=== PATIENT | male | born 1945 | race Caucasian/White ===

== ENCOUNTER 2021-05-11 20:15 | Inpatient (IN) ==
[2021-05-11 21:10] LABS: Basophils % 0.4 % (0.0-0.8); Eosinophils # 0.3 10*3/uL (0.0-0.87); Hematocrit 40.3 VOL% (42.0-52.0); Hemoglobin 13.6 GM/DL (14.0-18.0); Immature Granulocytes % 0.9 %; Immature Granulocytes Absolute 0.08 #; Lymphocytes # 1.8 10*3/uL (1.4-4.0); Lymphocytes % 18.9 % (21.2-54.2); Mean Corpuscular HGB Conc 33.7 GM/DL (32-36); Mean Corpuscular Volume 84.1 FL (87-102); Mean Platelet Volume 9.6 FL (9.6-12.0); Monocytes % 8.4 % (1.7-12.7); Neutrophils % 68.4 % (38.7-73.9); Platelet Count 247 T/CUMM (130-400); Red Blood Count 4.79 MC/CUMM (3.8-5.5); Red Cell Distribution Width 14.1 % (9.3-17.3); White Blood Count 9.3 T/CUMM (4-12)
[2021-05-11 21:37] LABS: Albumin 3.6 G/DL (3.4-5.0); Bilirubin,Total 0.5 MG/DL (0.20-1.00); Calcium 8.9 MG/DL (8.5-10.1); Osmolality,Calculated 277.1 MOS/KG (273-304); Potassium 3.4 MMOL/L (3.5-5.1); Total Protein 6.6 G/DL (6.4-8.2)
[2021-05-12] MEDS ORDERED: ENOXAPARIN 30 MG/0.3 ML SYRINGE SUBCUT STA (01:22)
[2021-05-12] MEDS ORDERED: ENOXAPARIN 120 MG/0.8 ML SYRINGE SUBCUT ONE (01:27)
[2021-05-12] MEDS ORDERED: hydrALAZINE 20 MG/1 ML VIAL IV PRN (01:57)
[2021-05-12] MEDS ORDERED: DEXTROSE 50% 25 GM/50 ML VIAL IV PRN (01:57)
[2021-05-12] MEDS ORDERED: ONDANSETRON 4 MG/2 ML VIAL IV PRN (01:57)
[2021-05-12] MEDS ORDERED: GLUCAGON 1 MG VIAL IM PRN (01:57)
[2021-05-12] MEDS ORDERED: ACETAMINOPHEN 325 MG TABLET PO PRN (01:57)
[2021-05-12 06:57] LABS: Basophils % 0.4 % (0.0-0.8); Eosinophils # 0.3 10*3/uL (0.0-0.87); Eosinophils % 2.7 % (0.00-10.9); Hematocrit 40.3 VOL% (42.0-52.0); Hemoglobin 13.6 GM/DL (14.0-18.0); Immature Granulocytes % 0.7 %; Immature Granulocytes Absolute 0.08 #; Lymphocytes # 1.6 10*3/uL (1.4-4.0); Lymphocytes % 15.2 % (21.2-54.2); Mean Corpuscular HGB Conc 33.7 GM/DL (32-36); Mean Corpuscular Volume 84.3 FL (87-102); Mean Platelet Volume 9.7 FL (9.6-12.0); Monocytes % 8.6 % (1.7-12.7); Neutrophils % 72.4 % (38.7-73.9); Platelet Count 246 T/CUMM (130-400); Red Blood Count 4.78 MC/CUMM (3.8-5.5); Red Cell Distribution Width 13.9 % (9.3-17.3); White Blood Count 10.7 T/CUMM (4-12)
[2021-05-12 07:14] LABS: Calcium 9.2 MG/DL (8.5-10.1); Osmolality,Calculated 274.8 MOS/KG (273-304); Potassium 3.2 MMOL/L (3.5-5.1)
[2021-05-12] MEDS ORDERED: POTASSIUM CHLORIDE 20 MEQ TABLET PO ONE ×2 (07:36→08:18)
[2021-05-12] MEDS: INSULIN LISPRO 100 UNIT/ML SUBCUT SCH ×4 (08:35→20:32)
[2021-05-12] MEDS ORDERED: MAGNESIUM SULF RIDER 2 GM/50 ML PREMIX IV ONE (08:41)
[2021-05-12] MEDS ORDERED: HEPARIN DRIP 25,000 UNITS/500 ML PREMIX IV SCH (09:00)
[2021-05-12 09:12] LABS: % Iron Saturation 13.7 % (18-50)
[2021-05-12 09:13] LABS: Folate > 24.00 NG/ML (5.38-24.0); Vitamin B12 594 PG/ML (211-911)
[2021-05-12] MEDS ORDERED: ASPIRIN 325 MG TABLET PO ONE (09:24)
[2021-05-12] MEDS ORDERED: diphenhydrAMINE CAP 50 MG CAPSULE PO ONE (09:24)
[2021-05-12] MEDS ORDERED: DIAZEPAM 5 MG TABLET PO ONE (09:24)
[2021-05-12] MEDS: PANTOPRAZOLE 40 MG TABLET PO SCH (09:29)
[2021-05-12] MEDS ORDERED: HEPARIN/NACL 0.9% 2 UNITS/ML 2,000 UNIT/1,000 ML BAG IV ONE (09:38)
[2021-05-12] MEDS ORDERED: LIDOCAINE 1% 20 ML VIAL ONE (09:38)
[2021-05-12] MEDS ORDERED: fentaNYL 100 MCG/2 ML VIAL ONE (10:11)
[2021-05-12] MEDS ORDERED: MIDAZOLAM 2 MG/2 ML VIAL ONE ×2 (10:11→10:31)
[2021-05-12] MEDS ORDERED: HEPARIN 5,000 UNIT/1 ML VIAL ONE ×2 (10:22→10:37)
[2021-05-12] MEDS ORDERED: HEPARIN/NACL 0.9% 2 UNITS/ML 1,000 UNIT/500 ML BAG IV ONE (10:59)
[2021-05-12] MEDS ORDERED: RIVAROXABAN 20 MG TABLET PO ONE (11:21)
[2021-05-12] MEDS ORDERED: ENOXAPARIN 120 MG/0.8 ML SYRINGE SUBCUT SCH (14:00)
[2021-05-12 14:18] LABS: INR 1.1; PT Patient Result 12.4 SECS (10.5-12.0)
[2021-05-12] MEDS: RIVAROXABAN 15 MG TABLET PO SCH (17:35)
[2021-05-12 18:43] LABS: AFP Tumor < 2.2 NG/ML (0-8); Cancer Antigen 19-9 10.45 U/ML (0-35)
[2021-05-13 06:32] LABS: Basophils % 0.4 % (0.0-0.8); Eosinophils # 0.2 10*3/uL (0.0-0.87); Eosinophils % 1.8 % (0.00-10.9); Hematocrit 37.4 VOL% (42.0-52.0); Hemoglobin 12.3 GM/DL (14.0-18.0); Immature Granulocytes % 0.9 %; Lymphocytes # 1.3 10*3/uL (1.4-4.0); Lymphocytes % 11.7 % (21.2-54.2); Mean Corpuscular HGB Conc 32.9 GM/DL (32-36); Mean Corpuscular Volume 86.8 FL (87-102); Mean Platelet Volume 10.4 FL (9.6-12.0); Monocytes % 8.4 % (1.7-12.7); Neutrophils % 76.8 % (38.7-73.9); Platelet Count 286 T/CUMM (130-400); Red Blood Count 4.31 MC/CUMM (3.8-5.5); Red Cell Distribution Width 14.3 % (9.3-17.3); White Blood Count 11.1 T/CUMM (4-12)
[2021-05-13 07:07] LABS: Calcium 8.9 MG/DL (8.5-10.1); Osmolality,Calculated 273.8 MOS/KG (273-304); Potassium 3.7 MMOL/L (3.5-5.1)
[2021-05-13] MEDS: INSULIN LISPRO 100 UNIT/ML SUBCUT SCH ×2 (07:27→11:11)
[2021-05-13 08:54] VITALS: BP 130/75
[2021-05-13] MEDS ORDERED: FERROUS SULFATE 325 MG TABLET PO SCH (09:00)
[2021-05-13] MEDS ORDERED: DOCUSATE SODIUM 100 MG CAPSULE PO SCH (09:00)
[2021-05-13] MEDS: RIVAROXABAN 15 MG TABLET PO SCH (09:11)
[2021-05-13] MEDS: PANTOPRAZOLE 40 MG TABLET PO SCH (09:25)
== END 2021-05-13 12:59 | disposition home or self-care (01) | DRG 164 ==
LOC: N.ED 20:15 → N.EDINP 05-12 01:57 → N.TELES 05-12 06:24
PROVIDERS: ADMIT Internal Medicine; ATTEND Internal Medicine